=== PATIENT | female | born 1980 | race Caucasian/White ===

== ENCOUNTER 2016-11-03 14:48 | Emergency (ER) | payer OTHER ==
[~2016-11-03] VITALS: Ht 160 cm; Wt 110.7 kg
[~2016-11-03 14:48] MED LIST: DEPO SHOT; INSULIN SYRINGE; LANCETS; LANTUS100 UNIT/1 SUB-Q; NOVOLOG100 UNITS/ SUB-Q; OMEPRAZOLE20 MG PO; TEST STRIPS; [UNRECOGNIZED DRUG - SUPPLY]
[2016-11-03] MEDS ORDERED: FAMOTIDINE20 MG PO (15:03)
[2016-11-03] MEDS ORDERED: LIPITOR20 MG PO (15:03)
[2016-11-03] MEDS ORDERED: GLUCOPHAGE1000 MG PO (15:03)
[2016-11-03] MEDS ORDERED: LISINOPRIL10 MG PO (15:04)
[2016-11-03] MEDS ORDERED: POTASSIUM99 M1 PO (15:04)
--- OUTSIDE RECORDS SUMMARY | 2016-11-03 16:52 | XMS ---
Demographics + + + | Address | [facility] [address] [address] | | | [place] [address] | + + + | Preferred Language | Unknown | + + + | Marital Status | Unknown | + + + | Lutheran Affiliation | Unknown | + + + | Race | Unknown | + + + | Ethnic Group | Unknown | + + + Author + + + | Author | [facility] | + + + | Organization | [facility] | + + + | Address | [address] | | | [place] [address] | + + + | Phone | | + + + Care Team Providers + + + + | Care Compliance Reviewer Name | Role | Phone | + + + + Unavailable | Unavailable | + + + + PROBLEMS +---------+ + + +--------+ + + | Type | Condition | ICD9-CM | [id number] | Onset | Condition | SNOMED | | | | Code | Code | Dates | Status | Code | +---------+ + + +--------+ + + | Problem | Morbid | | E66.01 | | Active | [id number] | | | obesity | | | | | | +---------+ + + +--------+ + + | Problem | Tobacco | | Z72.0 | | Active | 418022461 | | | use | | | | | | +---------+ + + +--------+ + + | Problem | History of | | Z86.59 | | Active | 683692076 | | | | | | | | | | | depression | | | | | | +---------+ + + +--------+ + + | Problem | DM | 250.02 | | | Active | 729034445 | | | (diabetes | | | | | | | | mellitus), | | | | | | | | type 2, | | | | | | | | uncontroll | | | | | | | | ed | | | | | | +---------+ + + +--------+ + + | Problem | Depo | V25.49 | | | Active | 061364221 | | | contracept | | | | | | | | ion | | | | | | +---------+ + + +--------+ + + | Problem | Hyperchole | 272.0 | | | Active | 714579091 | | | steremia | | | | | | +---------+ + + +--------+ + + | Problem | Diabetes | 250.00 | | | Active | 919099220 | | | type 2, | | | | | | | | controlled | | | | | | +---------+ + + +--------+ + + | Problem | GERD | | K21.9 | | Active | 805069151 | | | (gastroeso | | | | | | | | phageal | | | | | | | | reflux | | | | | | | | disease) | | | | | | +---------+ + + +--------+ + + | Problem | Dyslipidem | E78.5 | | | Active | 501443866 | | | ia | | | | | | +---------+ + + +--------+ + + | Problem | Overweight | | E66.3 | | Active | 477355215 | +---------+ + + +--------+ + + | Problem | Low | E55.9 | | | Active | 25762467 | | | vitamin D | | | | | | | | level | | | | | | +---------+ + + +--------+ + + | Problem | Cervical | C53.9 | | | Active | 683080184 | | | cancer | | | | | | +---------+ + + +--------+ + + | Problem | HTN | | I10 | | Active | 73421576 | | | (hypertens | | | | | | | | ion) | | | | | | +---------+ + + +--------+ + + ALLERGIES + + + + +---------+ | Substance | Reaction | Event Type | Date | Status | + + + + +---------+ | N.KJuan FA. | Unknown | Non Drug | Jul, | Unknown | | | | Allergy | | | + + + + +---------+ SOCIAL HISTORY No smoking Hx information available PLAN OF CARE + +---------+ | Activity | Details | + +---------+ +---+ | | +---+ + + + | Follow Up | 4 Weeks Reason:null | + + + VITAL SIGNS + + + + | Height | 63 in | 2016-08-04 | + + + + | Weight | 280 lbs | 2016-08-04 | + + + + | BMI | 49.59 kg/m2 | 2016-08-04 | + + + + | Temperature | 97.9 degrees Fahrenheit | 2016-08-04 | + + + + | Heart Rate | 110 /min | 2016-08-04 | + + + + | Blood pressure systolic | 126 mm Hg | 2016-08-04 | + + + + | Blood pressure diastolic | 82 mm Hg | 2016-08-04 | + + + + MEDICATIONS + + + + + + + +--------+ | Medicati | Instruct | Dosage | Frequenc | Start | End Date | Duration | Status | | on | ions | | y | Date | | | | + + + + + + + +--------+ | Potassiu | | | | | | | Active | | m | | | | | | | | | Chloride | | | | | | | | | 10 | | | | | | | | | MEQ/50ML | | | | | | | | + + + + + + + +--------+ | ReliOn | Sub Q | as | 6h | 20 June, | | 30 days | Active | | Insulin | Four | directed | | 2014 | | | | | Syringe | times a | | | | | | | | 29G X | day | | | | | | | | 1/2 | | | | | | | | + + + + + + + +--------+ | Alcohol | | as | 6h | 14 Apr, | | 30 days | Active | | Wipes 70 | | directed | | 2013 | | | | | % | | | | | | | | + + + + + + + +--------+ | Womens | | | | | | | Active | | Multi | | | | | | | | | Vitamin | | | | | | | | | & | | | | | | | | | Mineral | | | | | | | | | - | | | | | | | | + + + + + + + +--------+ | Free | | | | | | | Active | | Style | | | | | | | | | Lite | | | | | | | | | Glucose | | | | | | | | | Meter | | | | | | | | + + + + + + + +--------+ | Free | | | 8h | | | | Active | | Style | | | | | | | | | Lancets | | | | | | | | + + + + + + + +--------+ | Atorvast | Orally | 1 tablet | 24h | 07 Shankar, | | 30 | Active | | atin | Once a | | | 2014 | | day(s) | | | Calcium | day | | | | | | | | 10 MG | | | | | | | | + + + + + + + +--------+ | Metformi | Orally | 1 tablet | | | | | Active | | n HCl | twice | | | | | | | | 1000 MG | daily | | | | | | | + + + + + + + +--------+ | Lantus | Subcutan | 18 unit | | | | | Active | | 100 | eous QHS | | | | | | | | UNIT/ML | | | | | | | | + + + + + + + +--------+ | Lisinopr | Orally | 1 tablet | 24h | | | | Active | | il 5 MG | Once a | | | | | | | | | day | | | | | | | + + + + + + + +--------+ | Omeprazo | Orally | 1 | 24h | May, | | 30 | Active | | le 20 MG | Once a | capsule | | 2013 | | day(s) | | | | day | | | | | | | + + + + + + + +--------+ | Pepcid | Orally | 1 tablet | 24h | 05 Jul, | | 30 | Active | | 40 mg | Once a | | | 2016 | | day(s) | | | | day | | | | | | | + + + + + + + +--------+ | Xyzal 5 | Orally | 1 tablet | 24h | 05 Jul, | 3 Sep, | 30 | Active | | MG | Once a | in the | 2016 | 2016 | day(s) | | | | day | evening | | | | | | + + + + + + + +--------+ RESULTS + +--------+ + + | Name | Result | Date | Reference Range | + +--------+ + + | TSH | | 2016-08-04 | | + +--------+ + + | TSH | | | | + +--------+ + + | Lipid Panel | | 2016-08-04 | | + +--------+ + + | Cholesterol, Total | | | | + +--------+ + + | Triglycerides | | | | + +--------+ + + | HDL Cholesterol | | | | + +--------+ + + | VLDL Cholesterol | | | | | Malachi | | | | + +--------+ + + | LDL Cholesterol | | | | | Calc | | | | + +--------+ + + | Urinalysis, | | 2016-08-04 | | | w/Culture Reflex | | | | + +--------+ + + | Collection Type | | | | + +--------+ + + | Color | | | | + +--------+ + + | Clarity | | | | + +--------+ + + | Specific [place] | | | | + +--------+ + + | PH | | | | + +--------+ + + | Protein | | | | + +--------+ + + | Glucose | | | | + +--------+ + + | Ketone | | | | + +--------+ + + | Bilirubin | | | | + +--------+ + + | Blood/HGB | | | | + +--------+ + + | Nitrite | | | | + +--------+ + + | Urobilinogen | | | | + +--------+ + + | Leuk Esterase | | | | + +--------+ + + | Casts | | | | + +--------+ + + | WBC'S | | | | + +--------+ + + | RBC'S | | | | + +--------+ + + | Epithelial | | | | + +--------+ + + | Crystals | | | | + +--------+ + + | Bacteria | | | | + +--------+ + + | Comprehensive | | 2016-08-04 | | | Metabolic Panel | | | | + +--------+ + + | Microalbumin, Urine | | 2016-08-04 | | | (Random) | | | | + +--------+ + + | MICROALB, URINE | | | | + +--------+ + + | MICROALB/CREAT | | | | + +--------+ + + | CREATININE, URINE | | | | | (RANDOM) | | | | + +--------+ + + | Vitamin D 25-OH | | 2016-08-04 | | + +--------+ + + | VITAMIN D 25-OH | | | | + +--------+ + + | HGB A1C A1C | | 2016-08-04 | | + +--------+ + + | Gluc Mean | | | | + +--------+ + + | Hgb A1c | 6.6 | | | + +--------+ + + | CBC with | | 2016-08-04 | | | Differential Count | | | | + +--------+ + + PROCEDURES + + + + + | Procedure | Date Ordered | Related Diagnosis | Body Site | + + + + + | PT TOBACCO USE DONE | August 04, 2016 | | | | RCVD TLK | | | | + + + + + | PNEUMOCOCCAL VACC, | August 04, 2016 | | | | 13 MICHAEL IM | | | | + + + + + | INJECTION | August 04, 2016 | | | | INTRAMUSCULAR OR | | | | | SUBCUTANEOUS | | | | + + + + + | DOC MEDS VERIFIED | August 04, 2016 | | | | W/PT OR RE | | | | + + + + + | BMI >=30 CALCUATE | August 04, 2016 | | | | W/FOLLOWUP | | | | + + + + + | NEG SCR D PT NOT | August 04, 2016 | | | | MAHI Breen/U/ANITA DOC | | | | + + + + + | HG A1C LEVEL LT | August 04, 2016 | | | | <7.0% | | | | + + + + + | EST Pt. Level V | August 04, 2016 | | | | Comprehensive | | | | + + + + + | FLU IMMUNIZE | August 04, 2016 | | | | ORDER/ADMIN | | | | + + + + + | DSCHRG MED/CURRENT | August 04, 2016 | | | | MED MERGE | | | | + + + + + IMMUNIZATIONS + + + + + | Vaccine | Route | Administration Date | Status | + + + + + | Prevnar 13 | IM Intramuscular | August 04, 2016 | Administered | + + + + +"
--- OUTSIDE RECORDS SUMMARY | 2016-11-03 16:52 | XMS ---
Demographics + + + | Address | [facility] [address] | | | [place] [address] | + + + | Preferred Language | Unknown | + + + | Marital Status | Unknown | + + + | Temple Affiliation | Unknown | + + + | Race | Unknown | + + + | Ethnic Group | Unknown | + + + Author + + + | Author | [facility] | + + + | Organization | [facility] | + + + | Address | [address] | | | [place] [address] | + + + | Phone | | + + + Care Team Providers + + + + | Care Daily Sales Audit Clerk Name | Role | Phone | + + + + Unavailable | Unavailable | + + + + PROBLEMS +---------+ + + +--------+ + + | Type | Condition | ICD9-CM | [id number] | Onset | Condition | SNOMED | | | | Code | Code | Dates | Status | Code | +---------+ + + +--------+ + + | Problem | Morbid | | E66.01 | | Active | [id number] | | | obesity | | | | | | +---------+ + + +--------+ + + | Problem | Tobacco | | Z72.0 | | Active | 133887069 | | | use | | | | | | +---------+ + + +--------+ + + | Problem | History of | | Z86.59 | | Active | 551539391 | | | | | | | | | | | depression | | | | | | +---------+ + + +--------+ + + | Problem | DM | 250.02 | | | Active | 669797667 | | | (diabetes | | | [...] | V25.49 | | | Active | 803745134 | | | contracept | | | | | | | | ion | | | | | | +---------+ + + +--------+ + + | Problem | Hyperchole | 272.0 | | | Active | 858034482 | | | steremia | | | | | | +---------+ + + +--------+ + + | Problem | Diabetes | 250.00 | | | Active | 074009589 | | | type 2, | | | | | | | | controlled | | | | | | +---------+ + + +--------+ + + | Problem | GERD | | K21.9 | | Active | 302992784 | | | (gastroeso | | | | | | | | phageal | | | | | | | | reflux | | | | | | | | disease) | | | | | | +---------+ + + +--------+ + + | Problem | Dyslipidem | E78.5 | | | Active | 513610870 | | | ia | | | | | | +---------+ + + +--------+ + + | Problem | Overweight | | E66.3 | | Active | 606962411 | +---------+ + + +--------+ + + | Problem | Low | E55.9 | | | Active | 42202987 | | | vitamin D | | | | | | | | level | | | | | | +---------+ + + +--------+ + + | Problem | Cervical | C53.9 | | | Active | 587099950 | | | cancer | | | | | | +---------+ + + +--------+ + + | Problem | HTN | | I10 | | Active | 33233446 | | | (hypertens | | | | | | | | ion) | | | | | | +---------+ + + +--------+ + + ALLERGIES Unknown Allergies SOCIAL HISTORY No smoking Hx information available PLAN OF CARE VITAL SIGNS MEDICATIONS + + + + + + [...] | 1 tablet | 24h | 05 Konstantin, | 3 Sep, | 30 | Active | | MG | Once a | in the | | 2017 | 2017 | day(s) | | | | day | evening | | | | | | + + + + + + + +--------+ | Atorvast | Orally | 1 tablet | 24h | Aug, | | 30 | Active | | [...] + + + + + +--------+ | Cipro | Orally | 1 tablet | 12h | Jul, | 9 Konstantin, | 3 days | Active | | 500 mg | Twice a | | | 2016 | 2016 | | | | | day | [...] | 1 tablet | 24h | 05 Konstantin, | | 30 | Active | | 40 mg | Once a | | | 2017 | | day(s) | | | | day | | | | | | | + + + + + + + +--------+ | ReliOn | Sub Q | as | 6h | 20 June, | | 30 days | Active | | Insulin | Four | directed | | 2013 | | | | | Syringe | [...] | Orally | 1 | 24h | 07 May, | | 30 | Active | | le 20 MG | Once a | capsule | | 2014 | | day(s) | | | | [...] + + + + + +--------+ RESULTS No Results PROCEDURES No Known procedures IMMUNIZATIONS No Known Immunizations"
--- OUTSIDE RECORDS SUMMARY | 2016-11-03 16:52 | XMS ---
Demographics + + + | Address | [address] | | | [place] [address] | + + + | Preferred Language | Unknown | + + + | Marital Status | Unknown | + + + | Taoism Affiliation | Unknown | + + + | Race | Unknown | + + + | Ethnic Group | Unknown | + + + Author + + + | Author | [facility] | + + + | Organization | [facility] | + + + | Address | [address] | | | [place] [address] | + + + | Phone | | + + + Care Team Providers + + + + | Care Roll Or Tape Edge Machine Operator Name | Role | Phone | + + + + Unavailable | Unavailable | + + + + PROBLEMS +---------+ + + +--------+ + + | Type | Condition | ICD9-CM | [id number] | Onset | Condition | SNOMED | | | | Code | Code | Dates | Status | Code | +---------+ + + +--------+ + + | Problem | History of | | Z86.59 | | Active | 933287785 | | | | | | | | | | | depression | | | | | | +---------+ + + +--------+ + + | Problem | Low | E55.9 | | | Active | 59980267 | | | vitamin D | | | | | | | | level | | | | | | +---------+ + + +--------+ + + | Problem | Tobacco | | Z72.0 | | Active | 026768918 | | | use | | | | | | +---------+ + + +--------+ + + | Problem | Tobacco | F17.200 | | | Active | 951997344 | | | use | | | | | | | | disorder | | | | | | +---------+ + + +--------+ + + | Problem | GERD | | K21.9 | | Active | 655173232 | | | (gastroeso | | | | | | | | phageal | | | | | | | | reflux | | | | | | | | disease) | | | | | | +---------+ + + +--------+ + + | Problem | HTN | | I10 | | Active | 74096404 | | | (hypertens | | | | | | | | ion) | | | | | | +---------+ + + +--------+ + + | Problem | Overweight | | E66.3 | | Active | 135458330 | +---------+ + + +--------+ + + | Problem | Dyslipidem | E78.5 | | | Active | 921578651 | | | ia | | | | | | +---------+ + + +--------+ + + | Problem | Cervical | C53.9 | | | Active | 695263258 | | | cancer | | | | | | +---------+ + + +--------+ + + | Problem | Depo | V25.49 | | | Active | 820680144 | | | contracept | | | | | | | | ion | | | | | | +---------+ + + +--------+ + + | Problem | Hyperchole | 272.0 | | | Active | 945523333 | | | steremia | | | | | | +---------+ + + +--------+ + + | Problem | Diabetes | 250.00 | | | Active | 360970128 | | | type 2, | | | | | | | | controlled | | | | | | +---------+ + + +--------+ + + | Problem | DM | 250.02 | | | Active | 079967223 | | | (diabetes | | | [...] | | E66.01 | | Active | 754957277 | | | obesity | | | | | | +---------+ + + +--------+ + + ALLERGIES + + + + +---------+ | Substance | Reaction | Event Type | Date | Status | + + + + +---------+ | N.K.D.A. | Unknown | Non Drug | Aug, | Unknown | | | | Allergy | | | + + + + +---------+ SOCIAL HISTORY No smoking Hx information available PLAN OF CARE + +---------+ | Activity | Details | + +---------+ +---+ | | +---+ + + + | Follow Up | prn Reason:null | + + + | Pending Test | Urine Culture, Routine | + + + | Pending Test | Urinalysis, Dip (IH) | + + + VITAL SIGNS + + + + | Height | 63 in | 2016-09-17 | + + + + | Weight | 271.1 lbs | 2016-09-17 | + + + + | BMI | 48.02 kg/m2 | 2016-09-17 | + + + + | Temperature | 97.8 degrees Fahrenheit | 2016-09-17 | + + + + | Heart Rate | 96 /min | 2016-09-17 | + + + + | Blood pressure systolic | 129 mm Hg | 2016-09-17 | + + + + | Blood pressure diastolic | 94 mm Hg | 2016-09-17 | + + + + MEDICATIONS + [...] Q | as | 6h | 20 May, | | 30 days | Active | [...] Orally | 1 tablet | 24h | Jul, | | 30 days | Active | | 40 mg | Once a | | | 2016 | | | | | | day | | | | | | | + + + + + + + +--------+ | Xyzal 5 | Orally | 1 tablet | 24h | Jul, | 3 Oct, | 30 | Active | | MG | Once a | in the | | 2016 | 2016 | day(s) | | | | day | evening | | | | | | + + + + + + + +--------+ | Atorvast | Orally | 1 tablet | 24h | Aug, | | 30 | Active | | atin | Once a | | | 2013 | | day(s) | | | Calcium [...] + + +--------+ RESULTS No Results PROCEDURES + + + + + | Procedure | Date Ordered | Related Diagnosis | Body Site | + + + + + | LAB URINALYSIS (DIP | September 17, 2016 | | | | STICK ONLY | | | | + + + + + | Est Level III | September 17, 2016 | | | | Intermediate | | | | + + + + + IMMUNIZATIONS No Known Immunizations"
--- OUTSIDE RECORDS SUMMARY | 2016-11-03 16:52 | XMS ---
Demographics + + + | Address | [address] | | | [place] [address] | + + + | Preferred Language | Unknown | + + + | Marital Status | Unknown | + + + | Buddhist Affiliation | Unknown | + + + | Race | Unknown | + + + | Ethnic Group | Unknown | + + + Author + + + | Author | [facility] | + + + | Organization | [facility] | + + + | Address | [address] | | | [place] [address] | + + + | Phone | | + + + Care Team Providers + + + + | Care Water And Sewer Systems Superintendent Name | Role | Phone | + + + + Unavailable | Unavailable | + + + + PROBLEMS +---------+ + + +--------+ + + | Type | Condition | ICD9-CM | [id number] | Onset | Condition | SNOMED | | | | Code | Code | Dates | Status | Code | +---------+ + + +--------+ + + | Problem | History of | | Z86.59 | | Active | 266565698 | | | | | | | | | | | depression | | | | | | +---------+ + + +--------+ + + | Problem | Low | E55.9 | | | Active | 77091260 | | | vitamin D | | | | | | | | level | | | | | | +---------+ + + +--------+ + + | Problem | Tobacco | | Z72.0 | | Active | 202112680 | | | use | | | | | | +---------+ + + +--------+ + + | Problem | Tobacco | F17.200 | | | Active | 296492499 | | | use | | | | | | | | disorder | | | | | | +---------+ + + +--------+ + + | Problem | GERD | | K21.9 | | Active | 653528925 | | | (gastroeso | | | | | | | | phageal | | | | | | | | reflux | | | | | | | | disease) | | | | | | +---------+ + + +--------+ + + | Problem | HTN | | I10 | | Active | 24556327 | | | (hypertens | | | | | | | | ion) | | | | | | +---------+ + + +--------+ + + | Problem | Overweight | | E66.3 | | Active | 771278295 | +---------+ + + +--------+ + + | Problem | Dyslipidem | E78.5 | | | Active | 496678702 | | | ia | | | | | | +---------+ + + +--------+ + + | Problem | Cervical | C53.9 | | | Active | 369818464 | | | cancer | | | | | | +---------+ + + +--------+ + + | Problem | Depo | V25.49 | | | Active | 861440563 | | | contracept | | | | | | | | ion | | | | | | +---------+ + + +--------+ + + | Problem | Hyperchole | 272.0 | | | Active | 165647430 | | | steremia | | | | | | +---------+ + + +--------+ + + | Problem | Diabetes | 250.00 | | | Active | 158313089 | | | type 2, | | | | | | | | controlled | | | | | | +---------+ + + +--------+ + + | Problem | DM | 250.02 | | | Active | 423234820 | | | (diabetes | | | [...] | | E66.01 | | Active | 369704859 | | | obesity | | | [...] + + + | Follow Up | 3 Months Reason:null | + + + VITAL SIGNS + + + + | Height | 63 in | 2016-09-03 | + + + + | Weight | 278.4 lbs | 2016-09-03 | + + + + | BMI | 49.31 kg/m2 | 2016-09-03 | + + + + | Temperature | 97.6 degrees Fahrenheit | 2016-09-03 | + + + + | Heart Rate | 98 /min | 2016-09-03 | + + + + | Blood pressure systolic | 139 mm Hg | 2016-09-03 | + + + + | Blood pressure diastolic | 91 mm Hg | 2016-09-03 | + + + + MEDICATIONS + [...] | 1 tablet | 24h | 07 Aug, | | 30 | Active | | atin | Once a | | | 2013 | | day(s) | | | Calcium | day | | | | | | | | 10 MG | | | | | | | | + + + + + + + +--------+ | ReliOn | Sub Q | as | 6h | 19 July, | | 30 days | Active | [...] 24h | 05 Jul, | | 30 days | Active [...] Wipes 70 | | directed | | 2014 | | | | | % | [...] + | Est Level III | September 03, 2016 | | | | Intermediate | | | | + + + + + | HG A1C LEVEL LT | September 03, 2016 | | | | <7.0% | | | | + + + + + | DSCHRG MED/CURRENT | September 03, 2016 | | | | MED MERGE | | | | + + + + + IMMUNIZATIONS No Known Immunizations"
[2016-11-03] MEDS ORDERED: PROTONIX40 MG PO (17:44)
[2016-11-03] MEDS ORDERED: ONDANSETRON ODT8 MG PO (17:44)
== END 2016-11-03 17:51 | disposition home or self-care (01) ==
LOC: ED 14:48
DX: R10.9 Unspecified abdominal pain (principal); E11.9 Type 2 diabetes mellitus without complications; F17.200 Nicotine dependence, unspecified, uncomplicated; Z90.49 Acquired absence of other specified parts of digestive tract; Z98.51 Tubal ligation status; Z91.018 Allergy to other foods; Z79.84 Long term (current) use of oral hypoglycemic drugs; Z79.899 Other long term (current) drug therapy
CPT/HCPCS: 74177; 80053; 81001; 85025; 96374; 96375; 99284; J1170; J1885; J2405; J2550; Q9967

== ENCOUNTER 2017-10-21 21:05 | Emergency (ER) | payer OTHER ==
[~2017-10-21] VITALS: Ht 160 cm; Wt 105.7 kg
[~2017-10-21 21:05] MED LIST changes: +FAMOTIDINE20 MG PO; +GLUCOPHAGE1000 MG PO; +LIPITOR20 MG PO; +LISINOPRIL10 MG PO; +ONDANSETRON ODT8 MG PO; +POTASSIUM99 M1 PO; +PROTONIX40 MG PO
[2017-10-21] MEDS ORDERED: ZOLOFT25 MG PO (21:23)
[2017-10-21] MEDS ORDERED: VITAMIN D1000 UNIT PO (21:25)
== END 2017-10-21 23:54 | disposition home or self-care (01) ==
LOC: ED 21:05
DX: E11.65 Type 2 diabetes mellitus with hyperglycemia (principal); E11.9 Type 2 diabetes mellitus without complications; I10 Essential (primary) hypertension; F17.200 Nicotine dependence, unspecified, uncomplicated; Z91.018 Allergy to other foods; Z79.899 Other long term (current) drug therapy
CPT/HCPCS: 80053; 81001; 82010; 82800; 84703; 85025; 96360; 96361; 99284; J7030

== ENCOUNTER 2018-03-26 22:32 | Emergency (ER) | payer OTHER ==
[~2018-03-26] VITALS: Ht 160 cm; Wt 105.7 kg
[~2018-03-26 22:32] MED LIST changes: +GLIPIZIDE5 MG PO; +KETOROLAC TROME10 MG PO; +METHYLPREDNISOLO4 M1 PO; +PROVENTIL HFA6.7 GM INH; +TESSALON PERLE100 MG PO; +VITAMIN D1000 UNIT PO; +ZOLOFT25 MG PO
[2018-03-26] MEDS ORDERED: PRINIVIL5 MG PO (22:47)
[2018-03-26] MEDS ORDERED: LANTUS100 UNITS/ SUB-Q (22:47)
--- NOTE | 2018-03-27 14:14 | EKG ---
[facility] [address] [place] [address] Signed Normal sinus rhythm Normal ECG No previous ECGs available Confirmed by ROSINA WHITMAN MD ([id number]) on 03/27/2018 2:14:25 PM Electronically Signed By: ROSINA WHITMAN MD 03/27/18 1414 PATIENT NAME: ZOE ECHEVARRIAGino PACHECORALPH Electrocardiogram DATE OF : 76 PHYSICIAN: ROSINA WHITMAN MD REPORT #: [id number] REPORT IS CONFIDENTIAL AND NOT TO BE RELEASED WITHOUT AUTHORIZATION
== END 2018-03-27 00:26 | disposition home or self-care (01) ==
LOC: ED 22:32
DX: S22.31XA Fracture of one rib, right side, initial encounter for closed fracture (principal); E11.9 Type 2 diabetes mellitus without complications; I10 Essential (primary) hypertension; F17.200 Nicotine dependence, unspecified, uncomplicated; Z90.710 Acquired absence of both cervix and uterus; Z91.018 Allergy to other foods; Z79.899 Other long term (current) drug therapy; Z79.4 Long term (current) use of insulin; X58.XXXA Exposure to other specified factors, initial encounter
CPT/HCPCS: 71046; 80053; 84484; 85025; 85379; 93005; 93010; 99285-25

== ENCOUNTER 2018-05-13 21:34 | Emergency (ER) | payer OTHER ==
[~2018-05-13] VITALS: Ht 160 cm; Wt 105.7 kg
[~2018-05-13 21:34] MED LIST changes: +LANTUS100 UNITS/ SUB-Q; +PRINIVIL5 MG PO
--- OUTSIDE RECORDS SUMMARY | 2018-05-13 21:36 | XMS ---
PreManage Notification: NILSA ECHEVARRIA Security Debate Director Events No recent Security Events currently on file CRITERIA MET - [facility] - Has Care Guidelines CARE PROVIDERS JUAN CARLOS KAPLAN Hospitalist 12/30/2017-Current PHONE: Unknown [place] has no Care Guidelines for this patient. Care History Medical/Surgical 12/30/2017 [facility] - Patient is currently established with [facility]. If patient is seen in the ED during business hours. Please contact [facility] at [facility]. Care Recommendation: This patient has had 5 or more Emergency Department visits in the last 12 months.\T\nbsp; Patient requires education on the scope and purpose of the ED as an acute care provider not a Primary Care Provider and should not be utilized for chronic conditions.\T\nbsp; These are guidelines and the provider should exercise clinical judgment when providing care. E.D. VISIT COUNT (12 MO.) 5 [facility] TOTAL 5 NOTE: Visits indicate total known visits. ED/UCC VISIT TRACKING (12 MO.) 05/13/2018 21:34 [facility] [place] TYPE: Emergency COMPLAINT: - SORE THROAT 03/26/2018 22:33 [facility] [place] TYPE: Emergency COMPLAINT: - DIFFICULTY BREATHING DIAGNOSES: - [facility] (current) use of insulin - Allergy to other foods - Exposure to other specified factors, initial encounter - Acquired absence of both cervix and uterus - Fracture of one rib, right side, initial encounter for closed fracture - Other manager long term care (current) drug therapy - Essential (primary) hypertension - Type 2 diabetes mellitus without complications - Shortness of breath - Nicotine dependence, unspecified, uncomplicated 12/29/2017 14:07 [facility] [place] TYPE: Emergency COMPLAINT: - R RIB PAIN/NO INJURY DIAGNOSES: - Chondrocostal junction syndrome [Tietze] - Nicotine dependence, unspecified, uncomplicated - [facility] (current) use of oral hypoglycemic drugs - Allergy to other foods - Essential (primary) hypertension - Other manager long term care (current) drug therapy - Type 2 diabetes mellitus without complications - Pleurodynia 12/11/2017 17:52 [facility] [place] TYPE: Emergency COMPLAINT: - COUGH DIAGNOSES: - Viral infection, unspecified - Other skilled nursing (current) drug therapy - Essential (primary) hypertension - [facility] (current) use of oral hypoglycemic drugs - Nicotine dependence, unspecified, uncomplicated - Cough - Type 2 diabetes mellitus without complications - Allergy to other foods 10/21/2017 21:06 [facility] [place] TYPE: Emergency COMPLAINT: - HEADACHE,SLUGGISH, DIAGNOSES: - Type 2 diabetes mellitus with hyperglycemia - Type 2 diabetes mellitus without complications - Essential (primary) hypertension - Other skilled nursing (current) drug therapy - Allergy to other foods - Nicotine dependence, unspecified, uncomplicated - Headache INPATIENT VISIT TRACKING (12 MO.) No inpatient visits to display in this time frame [email or web address]
[2018-05-13] MEDS ORDERED: CITALOPRAM HBR10 MG PO (22:38)
[2018-05-13] MEDS ORDERED: NOVOLOG100 UNIT/2 SUB-Q (22:38)
[2018-05-14] MEDS ORDERED: AMOXICILLIN500 MG PO (00:49)
== END 2018-05-14 00:59 | disposition home or self-care (01) ==
LOC: ED 21:34
DX: J02.9 Acute pharyngitis, unspecified (principal); E11.9 Type 2 diabetes mellitus without complications; I10 Essential (primary) hypertension; Z90.49 Acquired absence of other specified parts of digestive tract; Z90.710 Acquired absence of both cervix and uterus; Z91.018 Allergy to other foods; Z79.899 Other long term (current) drug therapy; Z79.4 Long term (current) use of insulin
CPT/HCPCS: 87880; 99283

== ENCOUNTER 2018-07-21 14:51 | Emergency (ER) | payer OTHER ==
[~2018-07-21] VITALS: Ht 160 cm; Wt 105.7 kg
[~2018-07-21 14:51] MED LIST changes: +AMOXICILLIN500 MG PO; +CITALOPRAM HBR10 MG PO; +NOVOLOG100 UNIT/2 SUB-Q
--- OUTSIDE RECORDS SUMMARY | 2018-07-21 14:54 | XMS ---
PreManage Notification: NILSA ECHEVARRIA Security Service Establishment Attendant Events No recent Security Events currently on file CRITERIA MET - [facility] - Has Care Guidelines CARE PROVIDERS JUAN CARLOS KAPLAN Hospitalist 12/30/2017-Current PHONE: Unknown [place] has no Care Guidelines for this patient. Care History Medical/Surgical 12/30/2017 [facility] - Patient is currently established with [facility]. If patient is seen in the ED during business hours. Please contact CHWs at [facility]. Care Recommendation: This patient has had 5 [...] providing care. E.D. VISIT COUNT (12 MO.) 6 [facility] TOTAL 6 NOTE: Visits indicate total known visits. ED/UCC VISIT TRACKING (12 MO.) 07/21/2018 14:52 [facility] [place] TYPE: Emergency COMPLAINT: - LEFT ARM LAC 05/13/2018 21:34 [facility] [place] TYPE: Emergency COMPLAINT: - SORE THROAT DIAGNOSES: - Type 2 diabetes mellitus without complications - Acquired absence of both cervix and uterus - skilled nursing (current) use of insulin - Acquired absence of other specified parts of digestive tract - Allergy to other foods - Acute pharyngitis, unspecified - Essential (primary) hypertension - Other custodial (current) drug therapy 03/26/2018 22:33 [facility] [place] TYPE: Emergency COMPLAINT: - DIFFICULTY BREATHING DIAGNOSES: - skilled nursing (current) use of insulin - Allergy to other foods - Exposure to other specified factors, initial encounter - Acquired absence of both cervix and uterus - Fracture of one rib, right side, initial encounter for closed fracture - Other custodial (current) drug therapy - Essential (primary) hypertension - Type 2 diabetes mellitus without complications - Shortness of breath - Nicotine dependence, unspecified, uncomplicated 12/29/2017 14:07 [facility] [place] TYPE: Emergency COMPLAINT: - R RIB PAIN/NO INJURY DIAGNOSES: - Chondrocostal junction syndrome [Tietze] - Nicotine dependence, unspecified, uncomplicated - tank terminal gauger (current) use of oral hypoglycemic drugs - Allergy to other foods - Essential (primary) hypertension - Other watermelon inspector (current) drug therapy - Type 2 diabetes mellitus without complications - Pleurodynia 12/11/2017 17:52 [facility] [place] TYPE: Emergency COMPLAINT: - COUGH DIAGNOSES: - Viral infection, unspecified - Other custodial (current) drug therapy - Essential (primary) hypertension - tank terminal gauger (current) use of oral hypoglycemic drugs - Nicotine dependence, unspecified, uncomplicated - Cough - Type 2 diabetes mellitus without complications - Allergy to other foods 10/21/2017 21:06 [facility] [place] TYPE: Emergency COMPLAINT: - HEADACHE,SLUGGISH, DIAGNOSES: - Type 2 diabetes mellitus with hyperglycemia - Type 2 diabetes mellitus without complications - Essential (primary) hypertension - Other watermelon inspector (current) drug therapy - Allergy to other foods - Nicotine dependence, unspecified, uncomplicated - Headache INPATIENT VISIT TRACKING (12 MO.) No inpatient visits to display in this time frame [id number]
== END 2018-07-21 16:16 | disposition home or self-care (01) ==
LOC: ED 14:51
DX: S51.812A Laceration without foreign body of left forearm, initial encounter (principal); W26.8XXA Contact with other sharp object(s), not elsewhere classified, initial encounter; E11.9 Type 2 diabetes mellitus without complications; I10 Essential (primary) hypertension; F17.200 Nicotine dependence, unspecified, uncomplicated; Z91.018 Allergy to other foods; Z79.899 Other long term (current) drug therapy; Z79.4 Long term (current) use of insulin
CPT/HCPCS: 12001; 99282-25

== ENCOUNTER 2018-12-15 19:21 | Emergency (ER) | payer OTHER ==
[~2018-12-15] VITALS: Ht 160 cm; Wt 122.5 kg
[~2018-12-15 19:21] MED LIST changes: +BASAGLAR K100 UNIT/1 SUB-Q; +CEPHALEXIN500 MG PO; +VICTOZA 2-0.6 MG/0.1 SUB-Q; +VIRTUSSIN AC L118 ML PO; +ZITHROMAX250 MG PO
--- OUTSIDE RECORDS SUMMARY | 2018-12-15 19:24 | XMS ---
PreManage Notification: NILSA ECHEVARRIA Security Marketing Assistant Retail Division Events No recent Security Events currently on file CRITERIA MET - [facility] - Has Care Guidelines - [facility] - 2 Visits in 30 Days CARE PROVIDERS JUAN CARLOS KAPLAN Internal Medicine 12/30/2017-Current PHONE: Unknown [place] has no Care Guidelines for this patient. Care History Medical/Surgical 11/29/2018 [facility] Pt has appt w/ Dr Kaplan 03/01/2019 @ 2:30pm. 12/30/2017 [facility] - Patient is currently established with [facility]. If patient is seen in the ED during business hours. Please contact CHWs at [facility]. Care Recommendation: This patient has had 5 [...] providing care. E.D. VISIT COUNT (12 MO.) 7 [facility] TOTAL 7 NOTE: Visits indicate total known visits. ED/UCC VISIT TRACKING (12 MO.) 12/15/2018 19:21 [facility] [place] TYPE: Emergency COMPLAINT: - CHEST PAIN 11/28/2018 01:43 [facility] [place] TYPE: Emergency COMPLAINT: - SOB DIAGNOSES: - Other watermelon harvesting supervisor (current) drug therapy - Pneumonia, unspecified organism - Essential (primary) hypertension - Other chest pain - 1 Type 2 diabetes mellitus without complications - Allergy to other foods - truck terminal manager (current) use of insulin - Nicotine dependence, unspecified, uncomplicated 10/22/2018 16:35 [facility] [place] TYPE: Emergency COMPLAINT: - SORE THROAT, EAR ACHE DIAGNOSES: - Nicotine dependence, unspecified, uncomplicated - Essential (primary) hypertension - 1 Type 2 diabetes mellitus without complications - Otitis media, unspecified, right ear - Allergy to other foods - Acute pharyngitis, unspecified - Other detention (current) drug therapy - truck terminal manager (current) use of insulin 07/21/2018 14:52 [facility] [place] TYPE: Emergency COMPLAINT: - LEFT ARM LAC DIAGNOSES: - 1 Type 2 diabetes mellitus without complications - Essential (primary) hypertension - Allergy to other foods - Laceration without foreign body of left forearm, init encntr - Nicotine dependence, unspecified, uncomplicated - truck terminal manager (current) use of insulin - Other watermelon harvesting supervisor (current) drug therapy - Contact with other sharp object(s), NEC, initial encounter 05/13/2018 21:34 [facility] [place] TYPE: Emergency COMPLAINT: - SORE THROAT DIAGNOSES: - 1 Type 2 diabetes mellitus without complications - Acquired absence of both cervix and uterus - MCC (current) use of insulin - Acquired absence of other specified parts of digestive tract - Allergy to other foods - Acute pharyngitis, unspecified - Essential (primary) hypertension - Other watermelon harvesting supervisor (current) drug therapy 03/26/2018 22:33 [facility] [place] TYPE: Emergency COMPLAINT: - DIFFICULTY BREATHING DIAGNOSES: - truck terminal manager (current) use of insulin - Allergy to other foods - Exposure to other specified factors, initial encounter - Acquired absence of both cervix and uterus - Fracture of one rib, right side, init for clos fx - Other watermelon harvesting supervisor (current) drug therapy - Essential (primary) hypertension - 1 Type 2 diabetes mellitus without complications - Shortness of breath - Nicotine dependence, unspecified, uncomplicated 12/29/2017 14:07 [facility] [place] TYPE: Emergency COMPLAINT: - R RIB PAIN/NO INJURY DIAGNOSES: - Chondrocostal junction syndrome [Tietze] - Nicotine dependence, unspecified, uncomplicated - MCC (current) use of oral hypoglycemic drugs - Allergy to other foods - Essential (primary) hypertension - Other watermelon harvesting supervisor (current) drug therapy - 1 Type 2 diabetes mellitus without complications - Pleurodynia INPATIENT VISIT TRACKING ( MO.) No inpatient visits to display in this time frame [id number]
[2018-12-15] MEDS ORDERED: NAPROXEN500 MG PO (23:38)
[2018-12-15] MEDS ORDERED: CYCLOBENZAPRINE10 MG PO (23:38)
--- NOTE | 2018-12-16 20:52 | EKG ---
[facility] [address] [place], [place] [address] Signed Normal sinus rhythm Normal ECG When compared with ECG of 26-MAR-2018 22:40, No significant change was found Confirmed by ROSINA WHITMAN MD ([id number]) on 12/16/2018 8:52:40 PM Electronically Signed By: ROSINA WHITMAN MD 12/16/182051 PATIENT NAME: ECHEVARRIANILSA Electrocardiogram DATE OF : 76 PHYSICIAN: ROSINA WHITMAN MD REPORT #: [id number] REPORT IS CONFIDENTIAL AND NOT TO BE RELEASED WITHOUT AUTHORIZATION
== END 2018-12-16 00:01 | disposition home or self-care (01) ==
LOC: ED 19:21
DX: R07.89 Other chest pain (principal); E11.9 Type 2 diabetes mellitus without complications; I10 Essential (primary) hypertension; F17.200 Nicotine dependence, unspecified, uncomplicated; Z91.018 Allergy to other foods; Z79.899 Other long term (current) drug therapy; Z79.4 Long term (current) use of insulin
CPT/HCPCS: 71046; 80053; 85025; 85379; 93005; 93010; 99285-25

== ENCOUNTER 2019-05-12 18:05 | Emergency (ER) | payer OTHER ==
[~2019-05-12] VITALS: Ht 160 cm; Wt 122.5 kg
[~2019-05-12 18:05] MED LIST changes: +CYCLOBENZAPRINE10 MG PO; +NAPROXEN500 MG PO
--- OUTSIDE RECORDS SUMMARY | 2019-05-12 18:08 | XMS ---
PreManage Notification: NILSA ECHEVARRIA Security Cloud Developer Events No recent Security Events currently on file CRITERIA MET - [facility] - Has Care Guidelines CARE PROVIDERS JUAN CARLOS KAPLAN Internal Medicine 12/30/2017-Current PHONE: Unknown [place] has no Care Guidelines for this patient. Care History Medical/Surgical 11/29/2018 [facility] Pt has appt w/ Dr Kaplan 03/01/2019 @ 2:30pm. 12/30/2017 [facility] - Patient is currently established with [facility]. If patient is seen in the ED during business hours. Please contact CHWs at [facility]. Care Recommendation: This patient has had 5 [...] care. E.D. VISIT COUNT (12 MO.) 6 [facility] TOTAL 6 NOTE: Visits indicate total known visits. ED/UCC VISIT TRACKING (12 MO.) 05/12/2019 18:05 [facility] [place] TYPE: Emergency COMPLAINT: - R KNEE PAIN/INJ, SKIN PROBLEM 12/15/2018 19:21 [facility] [place] TYPE: Emergency COMPLAINT: - CHEST PAIN DIAGNOSES: - keno terminal operator (current) use of insulin - Chest pain, unspecified - Other chest pain - Nicotine dependence, unspecified, uncomplicated - Essential (primary) hypertension - Allergy to other foods - Other fci (current) drug therapy - 1 Type 2 diabetes mellitus without complications 11/28/2018 01:43 [facility] [place] TYPE: Emergency COMPLAINT: - SOB DIAGNOSES: - Other rodent exterminator (current) drug therapy - Pneumonia, unspecified organism - Essential (primary) hypertension - Other chest pain - 1 Type 2 diabetes mellitus without complications - Allergy to other foods - shelter (current) use of insulin - Nicotine dependence, unspecified, uncomplicated 10/22/2018 16:35 [facility] [place] TYPE: Emergency COMPLAINT: - SORE THROAT, EAR ACHE DIAGNOSES: - Nicotine dependence, unspecified, uncomplicated - Essential (primary) hypertension - 1 Type 2 diabetes mellitus without complications - Otitis media, unspecified, right ear - Allergy to other foods - Acute pharyngitis, unspecified - Other rodent exterminator (current) drug therapy - keno terminal operator (current) use of insulin 07/21/2018 14:52 [facility] [place] TYPE: Emergency COMPLAINT: - LEFT ARM LAC DIAGNOSES: - 1 Type 2 diabetes mellitus without complications - Essential (primary) hypertension - Allergy to other foods - Laceration without foreign body of left forearm, init encntr - Nicotine dependence, unspecified, uncomplicated - keno terminal operator (current) use of insulin - Other rodent exterminator (current) drug therapy - Contact with other sharp object(s), NEC, initial encounter 05/13/2018 21:[address] [facility] [place] TYPE: Emergency COMPLAINT: - SORE THROAT DIAGNOSES: - 1 Type 2 diabetes mellitus without complications - Acquired absence of both cervix and uterus - shelter (current) use of insulin - Acquired absence of other specified parts of digestive tract - Allergy to other foods - Acute pharyngitis, unspecified - Essential (primary) hypertension - Other fci (current) drug therapy INPATIENT VISIT TRACKING (12 MO.) No inpatient visits to display in this time frame [id number]
[2019-05-12] MEDS ORDERED: OXYBUTYNIN CHLO10 MG PO (18:20)
[2019-05-12] MEDS ORDERED: TRIAMCINOLONE A15 G3 TOP (19:51)
[2019-05-12] MEDS ORDERED: DICLOFENAC SODI75 MG PO (19:51)
== END 2019-05-12 19:59 | disposition home or self-care (01) ==
LOC: ED 18:05
DX: L30.1 Dyshidrosis [pompholyx] (principal); I10 Essential (primary) hypertension; E11.9 Type 2 diabetes mellitus without complications; F17.200 Nicotine dependence, unspecified, uncomplicated
CPT/HCPCS: 73560; 99283-25

== ENCOUNTER 2019-06-21 07:54 | Emergency (ER) | payer OTHER ==
[~2019-06-21] VITALS: Ht 160 cm; Wt 117.9 kg
[~2019-06-21 07:54] MED LIST changes: +DICLOFENAC SODI75 MG PO; +OXYBUTYNIN CHLO10 MG PO; +TRIAMCINOLONE A15 G3 TOP
--- OUTSIDE RECORDS SUMMARY | 2019-06-21 07:56 | XMS ---
PreManage Notification: NILSA ECHEVARRIA Security Exercise Planner Events No recent Security Events currently on file CRITERIA MET - [facility] - Has Care Guidelines CARE PROVIDERS JUAN CARLOS KAPLAN Internal Medicine 12/30/2017-Current PHONE: Unknown [place] has no Care Guidelines for this patient. Care History Medical/Surgical 11/29/2018 [facility] Pt has appt w/ Dr Kaplan 03/01/2019 @ 2:30pm. 12/30/2017 [facility] - Patient is currently established with [facility]. If patient is seen in the ED during business hours. Please contact CHWs at [facility]. Care Recommendation: This patient has had 5 [...] known visits. ED/UCC VISIT TRACKING (12 MO.) 06/21/2019 07:54 [facility] [place] TYPE: Emergency COMPLAINT: - R KNEE PAIN 05/12/2019 18:05 [facility] [place] TYPE: Emergency COMPLAINT: - R KNEE PAIN/INJ, SKIN PROBLEM DIAGNOSES: - Nicotine dependence, unspecified, uncomplicated - Dyshidrosis [pompholyx] - Dyshidrosis [pompholyx] - Essential (primary) hypertension - Type 2 diabetes mellitus without complications 12/15/2018 19:21 [facility] [place] TYPE: Emergency COMPLAINT: - CHEST PAIN DIAGNOSES: - alf (current) use of insulin - Chest pain, unspecified - Other chest pain - Nicotine dependence, unspecified, uncomplicated - Essential (primary) hypertension - Allergy to other foods - Other exterminator helper termite (current) drug therapy - Type 2 diabetes mellitus without complications 11/28/2018 01:43 [facility] [place] TYPE: Emergency COMPLAINT: - SOB DIAGNOSES: - Other longterm (current) drug therapy - Pneumonia, unspecified organism - Essential (primary) hypertension - Other chest pain - Type 2 diabetes mellitus without complications - Allergy to other foods - buttermaker helper (current) use of insulin - Nicotine dependence, unspecified, uncomplicated 10/22/2018 16:35 [facility] [place] TYPE: Emergency COMPLAINT: - SORE THROAT, EAR ACHE DIAGNOSES: - Nicotine dependence, unspecified, uncomplicated - Essential (primary) hypertension - Type 2 diabetes mellitus without complications - Otitis media, unspecified, right ear - Allergy to other foods - Acute pharyngitis, unspecified - Other longterm (current) drug therapy - alf (current) use of insulin 07/21/2018 14:[address] [facility] [place] TYPE: Emergency COMPLAINT: - LEFT ARM LAC DIAGNOSES: - Type 2 diabetes mellitus without complications - Essential (primary) hypertension - Allergy to other foods - Laceration without foreign body of left forearm, initial enco - Nicotine dependence, unspecified, uncomplicated - buttermaker helper (current) use of insulin - Other longterm (current) drug therapy - Contact with other sharp object(s), not elsewhere classified, INPATIENT VISIT TRACKING (12 MO.) No inpatient visits to display in this time frame [id number]
[2019-06-21] MEDS ORDERED: CRUTCH1 EACH (08:14)
== END 2019-06-21 08:30 | disposition home or self-care (01) ==
LOC: ED 07:54
DX: S89.91XA Unspecified injury of right lower leg, initial encounter (principal); E11.9 Type 2 diabetes mellitus without complications; I10 Essential (primary) hypertension; F17.200 Nicotine dependence, unspecified, uncomplicated; Z79.899 Other long term (current) drug therapy; X58.XXXA Exposure to other specified factors, initial encounter
CPT/HCPCS: 99283

== ENCOUNTER 2019-09-09 06:00 | Day surgery (SDC) | payer OTHER ==
[~2019-09-09] VITALS: Ht 160 cm; Wt 133.8 kg
[~2019-09-09 06:00] MED LIST changes: +CRUTCH1 EACH; +NOVOLOG FL100 UNIT/1; +PRINIVIL10 MG; -PRINIVIL5 MG PO
[2019-09-09] MEDS ORDERED: HYDROCODON-ACE1 EA11 PO (08:35)
[2019-09-09] MEDS ORDERED: CELECOXIB200 MG PO (08:35)
--- NOTE | 2019-09-09 08:46 | NUR ---
09/09/19 0846 Padma Shen 0841 PATIENT ARRIVES TO PACU SLEEPING. RESP EVEN AND UNLABORED, SNORING, AND COARSE UPPER AIRWAY SOUNDS. PATIENT AWAKENS WITH WITH VERBAL STIMULI, FOLLOWS COMMANDS TO COUGH. THEN BACK TO SLEEP.
--- NOTE | 2019-09-09 09:45 | NUR ---
[id number]: PT ARRIVES TO DS RM 12 FROM PACU AWAKE AND ALERT. PT RATES PAIN IN RIGHT KNEE 6/10 AND WOULD LIKE PAIN MEDICATION. PT PROVIDED ICED WATER AND CRACKERS, TOLERATES WELL. DC CRITERIA EXPLAINED. CALL LIGHT WITHIN REACH.
--- NOTE | 2019-09-09 10:00 | NUR ---
[id number]: PT PROVIDED MORE CRACKERS AND GRAPE JUICE. [id number]: PT UP TO BATHROOM WITH RN ASSIST. PT DENIES DIZZINESS OR NAUSEA WITH AMBULATION, STEADY GAIT. PT ABLE TO VOID QS WITH NO PROBLEMS. BACK TO DS RM 12 TO GET DRESSED. ENCOURAGED TO PULL CURTAIN OPEN WHEN READY. [id number]: DC INSTRUCTIONS GIVEN, PT VERBALIZES AN UNDERSTANDING. PT NOTIFIED THAT PAIN PRESCRIPTIONS WERE ESCRIPTED TO PHARMACY. PT DC'S VIA WC WITH RIGHT LEG ELEVATED TO PERSONAL VEHICLE AT MAIN HOSPITAL ENTRANCE TO HOME.
--- NOTE | 2019-09-12 14:23 | OR ---
[facility] [address] [place], [place] [address] Signed DATE OF OPERATION: 09/09/2019 SURGEON: Marquez Mckoy MD PREOPERATIVE DIAGNOSIS: Medial meniscus tear, right knee. POSTOPERATIVE DIAGNOSIS: Medial meniscus tear, right knee. PROCEDURE: Right knee arthroscopy with partial medial meniscectomy. PROJ MGR: ROBERT York ANESTHESIA: General. ESTIMATED BLOOD LOSS: Minimal. BRIEF HISTORY: Nilsa is a 39-year-old female with painful mechanical symptoms posteromedial meniscus tear. Risks and benefits of the operative intervention were discussed with her and she elected to proceed. Once consent was obtained, she was taken to the operating room after adequate anesthesia. She was placed on the operating room. Left leg was prepped and draped in standard was placed in well-padded leg stone. Leg was prepped and draped in standard sterile fashion. We injected the portal sites with 0.25% Marcaine with epinephrine. The standard inferolateral and superolateral portals were made and scope was introduced. ARTHROSCOPIC FINDINGS: She had moderate synovitis throughout the medially. The patella showed grade 1 chondromalacia as appropriate. Medical and lateral gutters were clear. The ACL was intact. The lateral compartment was intact. Medial compartment showed diffuse grade 2 chondromalacia to the femur. Grade 1-2 changes on the femoral side. There was a small horizontal tear of the posteromedial horn with surrounding erythema. DESCRIPTION OF OPERATION: Electronically Signed By: MARQUEZ MCKOY MD 09/09/19 1200 Electronically Signed By: MARQUEZ MCKOY MD 09/12/19 1601 PATIENT NAME: NILSA ECHEVARRIA OPERATIVE REPORT DATE OF : 76 REPORT #: [id number] PHYSICIAN: MARQUEZ MCKOY MD PCP: JUAN CARLOS KAPLAN MD REPORT IS CONFIDENTIAL AND NOT TO BE RELEASED WITHOUT AUTHORIZATION [facility] [address] [place], [place] [address] Signed Standard inferomedial portal was made. The straight and curved biters were used to trim the meniscus back to a stable rim. This was then smoothed using shaver and debris was evacuated. The scope was then withdrawn. Portals closed with 3-0 nylon. 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 Wound was dressed with Adaptic, ABD, and John wrap. She tolerated the procedure well. All sponge, needle, and instrument counts were correct. Marquez Mckoy MD BA/DEMETRIUSL /[id number] Copies: ~ Electronically Signed By: MARQUEZ MCKOY MD 09/09/19 1200 Electronically Signed By: MARQUEZ MCKOY MD 09/12/19 1601 PATIENT NAME: NILSA ECHEVARRIA OPERATIVE REPORT DATE OF : 76 REPORT #: [id number] PHYSICIAN: MARQUEZ MCKOY MD PCP: JUAN CARLOS KAPLAN MD REPORT IS CONFIDENTIAL AND NOT TO BE RELEASED WITHOUT AUTHORIZATION
== END 2019-09-09 11:25 | disposition home or self-care (01) ==
LOC: DS 06:00
PROVIDERS: Specialist
PROC: 0SBC4ZZ Excision of Right Knee Joint, Percutaneous Endoscopic Approach (ICD-10-PCS; principal; 2019-09-09 07:00)
DX: S83.241A Other tear of medial meniscus, current injury, right knee, initial encounter (principal); M22.41 Chondromalacia patellae, right knee; M65.9 Synovitis and tenosynovitis, unspecified; F17.200 Nicotine dependence, unspecified, uncomplicated
CPT/HCPCS: 01402; A9270; J0330; J0690; J1100; J1885; J2250; J2405; J2704; J2765; J3010; J7121

== ENCOUNTER 2019-09-29 05:35 | Day surgery (SDC) | payer OTHER ==
[~2019-09-29] VITALS: Ht 160 cm; Wt 136.1 kg
--- NOTE | ~2019-09-29 | OR ---
[facility] [address] [place], [place] [address] Draft DATE OF OPERATION: 09/29/2019 SURGEON: Kait Mays DO PREOPERATIVE DIAGNOSES: 1. Rectocele (symptomatic). 2. Morbid obesity. 3. Type 2 diabetes. POSTOPERATIVE DIAGNOSES: 1. Rectocele (symptomatic). 2. Morbid obesity. 3. Type 2 diabetes. PROCEDURES PERFORMED: 1. Posterior repair. 2. Perineorrhaphy. AUT[employer] ACCESSORIES INSTALLER: Gaston Milligan MD. ANESTHESIA: Spinal. ESTIMATED BLOOD LOSS: 50 mL. PACKING: Estrogen impregnated Kerlix. FINDINGS: Normal external genitalia with normal clitoris, urethral meatus, bilateral Montevideo's, and Bartholin glands. Somewhat gaping introitus with significant rectocele. Cervix and uterus are surgically absent with good apical support and anterior compartment support. Resolution of rectocele at the end of the case with introitus two and half fingerbreadths in width. COMPLICATIONS: None. PATIENT NAME: NILSA CALZADA OPERATIVE REPORT DATE OF : 76 REPORT #: [id number] PHYSICIAN: KAIT MAYS DO PCP: JUAN CARLOS KAPLAN MD REPORT IS CONFIDENTIAL AND NOT TO BE RELEASED WITHOUT AUTHORIZATION [facility] [address] [place] [id number] Draft INDICATIONS: Ms. Calzada is a pleasant 39-year-old white female, who complains of symptomatic rectocele. Symptoms of rectocele include pelvic pressure, dyspareunia, splinting, and sensation of incomplete emptying of stool. Medical history is complicated by morbid obesity and type 2 diabetes. Recent A1c was 7.2 and preoperative glucose was 193. The patient did suffer a fall in June and recently underwent arthroscopy with Dr. Mckoy, who cleared the patient for posterior repair with careful attention to positioning. Risks, benefits, and alternatives were discussed in detail with the patient. The patient understands and wished to proceed with procedure. TECHNIQUE: The patient was taken to the operating room, where a time-out was performed to confirm correct patient, correct procedure. Spinal anesthesia was adequately established and patient was prepped and draped in dorsal lithotomy position with feet in Yellofin stirrups. ICPs were on and running. The patient received Ancef 3 g per SCIP protocol and heparin due to an elevated preemie score. A De Jesus catheter was inserted after detailed examination of the pelvis. The patient with somewhat gaping introitus with rectocele noted consistent with in office exam. The apex is well supported and the anterior compartment shows no significant prolapse. The perineal body was infiltrated with 0.25% Marcaine with epinephrine after a De Jesus catheter was inserted. Perineorrhaphy was performed. The rectovaginal septum was then dissected bluntly and sharply using Metzenbaum scissors to the apex of the rectocele. Vaginal epithelium was then dissected carefully using blunt and sharp dissection with Ray-Diana and Metzenbaum scissors, freeing the rectum. Good tissue was noted bilaterally. This was then plicated in the midline using 0 Vicryl in interrupted sutures with excellent resolution of the rectocele. A rectal exam was performed that demonstrated no sutures perforating the colon. Vaginal epithelium was then trimmed using Metzenbaum scissors and the vaginal epithelium was closed using 2-0 Vicryl in a running locked suture. FloSeal was then applied to the rectovaginal space. The perineorrhaphy was then repaired in the standard manner using 0 Vicryl and 2-0 Vicryl suture with excellent support cosmesis and hemostasis. The vaginal opening was noted to be approximately two and half fingerbreadths in width at the end of the procedure. The vagina was then packed with estrogen/Premarin impregnated Kerlix. The patient was then taken to PACU in good and stable condition. Sponge, needle, and instrument counts were correct x2 at the end of the procedure. Dr. Milligan was present and participated in all portions of the procedure. Estimated blood loss 50 mL. PATIENT NAME: NILSA CALZADA OPERATIVE REPORT DATE OF : 76 REPORT #: [id number] PHYSICIAN: KAIT MAYS DO PCP: JUAN CARLOS KAPLAN MD REPORT IS CONFIDENTIAL AND NOT TO BE RELEASED WITHOUT AUTHORIZATION [facility] [address] [place], [place] [address] Draft DO MIGUEL Meneses/DIVINA /[id number] Copies: ~ PATIENT NAME: NILSA CALZADA OPERATIVE REPORT DATE OF : 76 REPORT #: [id number] PHYSICIAN: KAIT MAYS DO PCP: JUAN CARLOS KAPLAN MD REPORT IS CONFIDENTIAL AND NOT TO BE RELEASED WITHOUT AUTHORIZATION
[~2019-09-29 05:35] MED LIST changes: +CELECOXIB200 MG PO; +HYDROCODON-ACE1 EA11 PO
[2019-09-29] MEDS ORDERED: TYLENOL EXTRA500 MG PO (06:15)
--- NOTE | 2019-09-29 09:47 | NUR ---
PT ARRIVES BACK TO DS RM 4 FROM PACU A&O X3. PT DENIES ANY PAIN OR NAUSEA, TOLERATES WATER WELL. PT DOES STATE FEELING "ITCHY" AND IS SCRATCHING BODY. PER REPORT, BENADRYL WAS GIVEN IN PACU. PT PROVIDED GLASSES AND APPLIES GLUCOSE SENSOR TO RIGHT CHEST. PT WOULD LIKE SOMETHING MORE SUBSTANTIAL TO EAT THAN CRACKERS, ORDER TAKEN. DC CRITERIA EXPLAINED, CALL LIGHT WITHIN REACH.
--- NOTE | 2019-09-29 09:50 | NUR ---
PT TAKES PERSONAL MEDICATIONS WITHOUT RN KNOWLEDGE. EDUCATION IS GIVEN ABOUT PERSONAL MEDICATION WHILE IN THIS RN'S CARE. 1015: IN DS UNIT TO CHECK ON PATIENT. FOOD DELIVERED TO PT. PT SITTING UPRIGHT TALKING ON PHONE.
--- NOTE | 2019-09-29 10:13 | NUR ---
PT ALERT, ORIENTED AND SEEMS AT EASE. QUESTIONS ASKED AND ANSWERED. KADEN COOMBS IN TO ADMIN MORE MEDS, GAVE BLESSING, WILL FOLLOW
--- NOTE | 2019-09-29 10:48 | NUR ---
PT TOLERATES 100% OF MEAL WITH NO C/O NAUSEA. PT DENIES PAIN AND CONT TO HAVE ITCHING ON BACK. PT EASILY FALLS ASLEEP WITH NO STIMULATION, SNORES. CONT PULSE OXIMETER LEFT IN PLACE. CALL LIGHT WITHIN REACH.
--- NOTE | 2019-09-29 11:42 | NUR ---
PT RESTING IN BED WITH EYES CLOSED, SNORING. PT AROUSES WHEN THIS RN ENTERS ROOM. PT DENIES ANY NAUSEA OR PAIN. PT ALSO STATES BEING ABLE TO FEEL FEET "LIKE NORMAL" AND DENIES ANY NUMBNESS OR TINGLING IN BLE. PT ASKS IF CATHETER CAN BE REMOVED "IT IS UNCOMFORTABLE." PT ENC TO AMBULATE IN THE UNIT PRIOR TO REMOVING CATHETER TO CONFIRM SPINAL IS RESOLVED. APPROX 400 MLS YELLOW URINE EMPTIED FROM VASQUEZ BAG. PT SITS AT SIDE OF PRIOR TO STANDING, DENIES NAUSEA OR DIZZINESS. PT HAS STEADY GAIT WITH NO NUMBNESS IN FEET, AMBULATES AROUND NURSES STATION WITH NO PROBLEMS. PT BACK TO DS RM4 TO REMOVE VASQUEZ. APPROX 9 MLS CLEAR FLUID EMPTIED FROM BALLOON AND CATHETER GENTLY REMOVED, PT TOLERATES WELL. ONE PIECE OF GAUZE VAGINAL PACKING ALSO REMOVED AT THIS TIME, PT TOLERATES WELL WITH NO C/O PAIN. PT PROVIDED BABY WIPES AND REQUESTS TO DON OWN PERSONAL GARMENTS. PT ENC TO USE CALL LIGHT WITH URGE TO VOID. PT USES GLUCOSE SENSOR, 162 AT THIS TIME. CALL LIGHT WITHIN REACH.
--- NOTE | 2019-09-29 13:01 | NUR ---
PT UP TO BATHROON WITH RN ASSIST, STEADY GAIT. PT UNABLE TO VOID AT THIS TIME. ICED WATER REFILLED. PT DENIES ANY BLADDER PAIN AT THIS TIME, WILL CONTINUE TO MONITOR. CALL LIGHT WITHIN REACH.
[2019-09-29] MEDS ORDERED: PERCOCET 5-3251 EACH PO (13:09)
--- NOTE | 2019-09-29 13:10 | NUR ---
DR. GARCIA NOTIFIED OF PT STATUS, VERBALIZES HE WILL PUT DC ORDERS INTO [employer]. VERBAL ORDERS TO BLADDER SCAN PT IF UNABLE TO VOID BY 1430.
--- NOTE | 2019-09-29 14:16 | NUR ---
PT'S CALL LIGHT ALARMING. PT VERBALIZES NEED TO USE BATHROOM AND AMBULATES DOWN LAMBERT AND TOLERATES. PT UNABLE TO VOID AND REPORTS GAS PAINS. MYLICON GIVEN SEE EMAR. PT BACK TO ROOM FOR BLADDER SCAN BY CORIN ALFONSO. CALL LIGHT WITHIN REACH
--- NOTE | 2019-09-29 14:30 | NUR ---
1430: PT BLADDER SCANNED OF APPROX [address] GARCIA NOTIFED. GIVES VERBAL ORDERS TO CATHETER PT IN 1 HOUR IF NOT ABLE TO VOID. PT MADE AWARE OF PLAN. PT AMBULATES AROUND DS UNIT WITH RN ASSIST, AFTER 2 LAPS PT STATES SHE WOULD LIKE TO TRY THE BATHROOM AGAIN. PT ABLE TO VOID APPROX 200 MLS PINK URINE. PT STATES HAVING "DISCOMFORT" AND RATES IT 4/10. PT STATES SHE FEELS LIKE SHE NEEDS TO HAVE A BOWEL MOVEMENT. DR. GARCIA IN PT ROOM TO ANSWER QUESTIONS PRIOR TO WI DC. PT CONTACTS [facility] HOME.
--- NOTE | 2019-09-29 14:45 | NUR ---
1445: DC INSTRUCTIONS VERBALLY GIVEN TO PT, ALL QUESTIONS ANSWERED. PAIN PRESCRIPTION IN DC FOLDER. PT DC'S VIA WC TO PERSONAL VEHICLE AT MAIN ENTRANCE OF HOSPITAL TO HOME.
--- NOTE | 2019-09-29 21:38 | EKG ---
[facility] [address] [place], [place] [address] Signed Normal sinus rhythm Normal ECG When compared with ECG of 15-DEC-2018 21:08, No significant change was found Confirmed by CE SAXENA DO ([id number]) on 09/29/2019 9:37:49 PM Electronically Signed By: CE SAXENA DO 09/29/19 2138 PATIENT NAME: ZOE ECHEVARRIAGino PARRY Electrocardiogram DATE OF : 76 PHYSICIAN: CE SAXENA DO REPORT #: [id number] REPORT IS CONFIDENTIAL AND NOT TO BE RELEASED WITHOUT AUTHORIZATION
== END 2019-09-29 14:53 | disposition home or self-care (01) ==
LOC: OPS 05:35 → DS 05:35 → OPS 06:45
PROVIDERS: Obstetrics & Gynecology
PROC: 0KQM0ZZ Repair Perineum Muscle, Open Approach (ICD-10-PCS; 2019-09-29)
PROC: 0JQC0ZZ Repair Pelvic Region Subcutaneous Tissue and Fascia, Open Approach (ICD-10-PCS; principal; 2019-09-29 06:45)
DX: N81.6 Rectocele (principal); E11.9 Type 2 diabetes mellitus without complications; K21.9 Gastro-esophageal reflux disease without esophagitis; E66.01 Morbid (severe) obesity due to excess calories; Z79.899 Other long term (current) drug therapy; Z79.4 Long term (current) use of insulin; Z68.43 Body mass index [BMI] 50.0-59.9, adult
CPT/HCPCS: 00942; 93005; 93010; J0690; J1200; J1644; J2001; J2250; J2704; J3010; J7121

== ENCOUNTER 2020-06-05 06:13 | Day surgery (SDC) | payer OTHER ==
[~2020-06-05] VITALS: Ht 160 cm; Wt 125.0 kg
[~2020-06-05 06:13] MED LIST changes: +ALLERGY4 MG PO; +JARDIANCE25 MG PO; +PEPCID40 MG PO; +PERCOCET 5-3251 EACH PO; +TRULICITY1.5 MG/0.5 SUB-Q; +TYLENOL EXTRA500 MG PO
[2020-06-05] MEDS ORDERED: JARDIANCE25 MG PO (06:32)
--- NOTE | 2020-06-05 08:01 | NUR ---
06/05/20 0801 Steph Mckoy 0756 PT TO PACU SLEEPING O2 VIA NASAL CANNULA.
--- NOTE | 2020-06-05 09:46 | NUR ---
PT ALERT, ORIENTED AND BEGAN TO EXPLAIN WHY SHE WAS HERE TODAY. ALL QUESTIONS ASKED ANSWERED, PT HAS RIDE ARRANGED. PT ALSO REQUESTED PRAYER AND ASKED TO HAVE PRAYER FOR HER DAUGHTER WITH HEART PROBLEMS. WILL FOLLOW NEEDED
--- NOTE | 2020-06-05 17:04 | OR ---
[facility] [address] [place], [place] [address] Signed DATE OF OPERATION: 06/05/2020 SURGEON: Ernesto Darling MD PREOPERATIVE DIAGNOSES: 1. Obesity. 2. Gastroesophageal reflux disease/heartburn. POSTOPERATIVE DIAGNOSES: 1. Moderate diffuse gastritis. 2. Moderate-sized hiatal hernia (42-37 cm). 3. Mild distal esophagitis. PROCEDURES: EGD with CLOtest and biopsies of the antrum, GE junction and distal esophagus. ESTIMATED BLOOD LOSS: None. INDICATIONS: Nilsa is a 40-year-old obese female with a body mass index of 48.7. She is also diabetic. In the office, she told me she has no upper GI complaints. But yet this morning, we discussed the fact that she does have acid reflux and heartburn for which she uses Pepcid 40 mg p.o. daily. She is currently under evaluation for gastric bypass surgery with [facility]. As always, she was asked to see me for an upper endoscopy with respect to her preoperative evaluation. I gave Nilsa a booklet in the office on upper endoscopy. We reviewed the nature of the test along with its risks including, but not limited to gas bloating, crampy abdominal pain, bleeding, perforation requiring surgery, and missed diagnosis. She also understands the need for IV conscious sedation. She had expressed understanding and wished to proceed. PROCEDURE NOTE: Nilsa was taken into our endoscopy suite and placed in a supine semi-recumbent position. She was given a total of 6 mg of Versed and 100 mcg of fentanyl to cover the case. Even then she was [id number] awake and moving around. she lost her airway quickly and we needed elevation of the mandible. She therefore should consider monitored anesthesia care in the future. Nevertheless, we were able to pass the gastroscope down and out into the third portion of the duodenum. The duodenum and pyloric channel were unremarkable. The stomach showed moderate diffuse erythematous changes throughout. We took a biopsy of the antrum for CLOtest as well as pathologic Electronically Signed By: ERNESTO DARLING MD 06/05/20 1704 PATIENT NAME: NILSA ECHEVARRIA OPERATIVE REPORT DATE OF : 76 REPORT #: [id number] PHYSICIAN: ERNESTO DARLING MD PCP: DA WHITESIDE MD REPORT IS CONFIDENTIAL AND NOT TO BE RELEASED WITHOUT AUTHORIZATION [facility] [address] [place], [place] [address] Signed review. Upon retroflexion of the scope, we can see her moderate-sized hiatal hernia. It measured out 42 cm back to 37 cm. There were no ulcerations. We withdrew the scope up through the area of the GE junction, which was compliant without stricture. She has mild disruption to her Z-line. There were some inflammatory changes around the Z-line as well as mild inflammatory changes in the very distal esophagus. Therefore, we took biopsies along the Z-line as well as the distal esophagus. The middle and upper esophagus were unremarkable. We did not see Queen's esophagus. After this, the gas was suctioned out and the gastroscope removed. Nilsa tolerated the procedure quite well. RECOMMENDATIONS: I will see Nilsa back in my office in 7 to 14 days to review her results. Ernesto Darling MD ALB/MODL /[id number] cc: Ernesto Darling MD [facility] Da Whiteside MD Copies: ERNESTO DARLING MD, MALCOLM MD ~ Electronically Signed By: ERNESTO DARLING MD 06/05/20 1704 PATIENT NAME: NILSA ECHEVARRIA OPERATIVE REPORT DATE OF : 76 REPORT #: [id number] PHYSICIAN: ERNESTO DARLING MD PCP: DA WHITESIDE MD REPORT IS CONFIDENTIAL AND NOT TO BE RELEASED WITHOUT AUTHORIZATION
--- NOTE | 2020-06-08 15:38 | PATH ---
[facility] [address] [place], [place] [address] Signed SPECIMEN(S): A ANTRUM/PYLORUS BIOPSY SPECIMEN(S): B GE JUNCTION SPECIMEN(S): C GE JUNCTION SPECIMEN SOURCE: A. ANTRUM/PYLORUS BIOPSY B. GE JUNCTION C. GE JUNCTION CLINICAL HISTORY: Pre: History of GERD. Post: Mild distal esophagitis, small hiatal hernia. MICROSCOPIC DESCRIPTION: Histologic sections of all submitted blocks are examined by light microscopy. These findings, together with the gross examination, support the pathologic diagnosis. FINAL PATHOLOGIC DIAGNOSIS: A. Stomach, antrum/pylorus, biopsy: - Antral mucosa with reactive gastropathy. - Negative for Helicobacter organisms on HE stain. - Negative for dysplasia or malignancy. B. Gastroesophageal junction, biopsy: - Squamous mucosa with mild reactive changes. - Negative for intestinal metaplasia, dysplasia, or malignancy. C. Gastroesophageal junction, biopsy: - Squamous mucosa with mild chronic inflammation and reactive epithelial changes, suggestive of reflux esophagitis. - Negative for intestinal metaplasia, dysplasia, or malignancy. NAL:cml:C2NR GROSS DESCRIPTION: Three specimens are received in three containers, labeled "EP." A. The specimen, labeled "EP, 1," and designated on the requisition "antrum biopsy," is received in formalin and consists of one myrick soft tissue fragment that measures 0.5 cm in greatest dimension. The specimen is entirely submitted in cassette (A1). B. The specimen, labeled "EP, 2," and designated on the requisition "EG junction biopsy," is received in formalin and consists of one elongated myrick-white soft tissue fragment that measures 0.8 cm in greatest dimension. The specimen is entirely submitted in cassette (B1). C. The specimen, labeled "EP, 3," and designated on the requisition "EG PATIENT NAME: NILSA ECHEVARRIA PATHOLOGY DATE OF : 76 REPORT #: [id number] PHYSICIAN: PETRONA PATHOLOGY PCP: JUAN CARLOS KAPLAN MD REPORT IS CONFIDENTIAL AND NOT TO BE RELEASED WITHOUT AUTHORIZATION [facility] [address] [place], [place] [address] Signed junction biopsy," is received in formalin and consists of one elongated myrick-white soft tissue fragment that measures 0.6 cm in greatest dimension. The specimen is entirely submitted in cassette (C1). AI (under the direct supervision of a pathologist) The Gross Description was prepared using a voice recognition system. The report was reviewed for accuracy; however, sound-alike word errors, addition and/or deletions may occur. If there is any question about this report, please contact Client Services. PERFORMING LABORATORY: The technical component was performed by [facility], [address] [place] [id number] (Raw Sampler: Lily Conteh MD; CLIA# [id number]). [facility], [address] [address] (CLIA# [id number]). Diagnostician: Lisa Karimi MD Pathologist Electronically Signed 06/08/2020 Copies: ~ PATIENT NAME: NILSA ECHEVARRIA PATHOLOGY DATE OF : 76 REPORT #: [id number] PHYSICIAN: PETRONA PATHOLOGY PCP: JUAN CARLOS KAPLAN MD REPORT IS CONFIDENTIAL AND NOT TO BE RELEASED WITHOUT AUTHORIZATION
== END 2020-06-05 08:35 | disposition home or self-care (01) ==
LOC: DS 06:13 → OPS 06:13
PROVIDERS: ATTEND Colon & Rectal Surgery
PROC: 0DB78ZX Excision of Stomach, Pylorus, Via Natural or Artificial Opening Endoscopic, Diagnostic (ICD-10-PCS; principal; 2020-06-05 06:45)
DX: Z01.818 Encounter for other preprocedural examination (principal); K29.60 Other gastritis without bleeding; K44.9 Diaphragmatic hernia without obstruction or gangrene; K21.00 Gastro-esophageal reflux disease with esophagitis, without bleeding; E11.9 Type 2 diabetes mellitus without complications; Q63.1 Lobulated, fused and horseshoe kidney; E66.01 Morbid (severe) obesity due to excess calories; Z68.42 Body mass index [BMI] 45.0-49.9, adult; Z87.891 Personal history of nicotine dependence; Z79.84 Long term (current) use of oral hypoglycemic drugs; Z88.6 Allergy status to analgesic agent; Z91.02 Food additives allergy status
CPT/HCPCS: 86677; 88305; 99153; G0500; J2250; J3010; J7121